=== PATIENT | female | born 1950 | race Caucasian/White ===

== ENCOUNTER → 2021-03-15 | Outpatient (CLI) | payer MEDICARE ==
[2021-03-15 16:43] LABS: HCT 37.8 % (37.2-46.3); HGB 11.4 g/dL (12.0-15.0); MCH 29.3 pg (27.0-32.0); MCHC 30.2 g/dL (32.0-37.0); MCV 97.2 fL (80.0-97.0); Mean Platelet Volume 10.8 fL (9.5-12.2); Platelet Count 423 X 10*3/uL (140-440); RBC 3.89 X 10*6/uL (4.10-5.20); RDW 14.2 % (11.5-14.5); WBC 8.32 X 10*3/uL (4.50-10.00)
[2021-03-15 18:14] LABS: African American GFR (CKD) 87.6 (60.0-200.0); Albumin 4.4 g/dL (3.8-4.9); Anion Gap 11.7 mmol/L (4.00-12.00); BUN/Creat Ratio 25.51 Ratio (12.00-20.00); Blood Urea Nitrogen 20.1 mg/dL (9.0-27.0); Calcium 9.7 mg/dL (8.7-10.3); Carbon Dioxide 24.3 mmol/L (21.6-31.8); Chol/HDL Ratio 3.94 Ratio; LDL Cholesterol,Calculated 162.8 mg/dL (0.0-131.0); Non-African American GFR(CKD) 75.5 (60.0-200.0); Phosphorus 3.3 mg/dL (2.4-5.1); Potassium 4.3 mmol/L (3.5-5.5); VLDL Calculation 25.2 mg/dL (5.00-40.00)
== END | disposition home or self-care (01) ==
LOC: LABWHC1 09:38
PROVIDERS: ATTEND Internal Medicine
DX: D64.9 Anemia, unspecified (principal); E78.5 Hyperlipidemia, unspecified; R53.83 Other fatigue; R00.0 Tachycardia, unspecified
CPT/HCPCS: 36415; 80061; 80069; 83036; 84443; 85027

== ENCOUNTER → 2021-09-13 | Outpatient (CLI) | payer MEDICARE ==
[2021-09-13 22:37] LABS: ALT 31 U/L (8-44); AST 29 U/L (13-35); Chol/HDL Ratio 3.49 Ratio; LDL Cholesterol,Calculated 175.9 mg/dL (0.0-131.0)
== END | disposition home or self-care (01) ==
LOC: LABWHC1 13:12
PROVIDERS: ATTEND Internal Medicine
DX: E78.2 Mixed hyperlipidemia (principal)
CPT/HCPCS: 36415; 80061; 84450; 84460

== ENCOUNTER → 2022-04-08 | Outpatient (CLI) | payer MEDICARE ==
[2022-04-08 18:32] LABS: HCT 38.4 % (37.2-46.3); HGB 12.4 g/dL (12.0-15.0); MCH 30.5 pg (27.0-32.0); MCHC 32.3 g/dL (32.0-37.0); MCV 94.6 fL (80.0-97.0); Mean Platelet Volume 10.4 fL (9.5-12.2); NRBC Per 100 WBC 0 /100 WBCS (0.0-0.0); Platelet Count 321 X 10*3/uL (140-440); RBC 4.06 X 10*6/uL (4.10-5.20); RDW 12.8 % (11.5-14.5); WBC 8.43 X 10*3/uL (4.50-10.00)
== END | disposition home or self-care (01) ==
LOC: LABWHC1 14:22
PROVIDERS: ATTEND Internal Medicine
DX: E78.5 Hyperlipidemia, unspecified (principal); R06.02 Shortness of breath; R07.9 Chest pain, unspecified
CPT/HCPCS: 36415; 80061; 85027

== ENCOUNTER → 2023-01-27 | Outpatient (CLI) | payer MEDICARE ==
[2023-01-27 20:44] LABS: ALT 26 U/L (8-44); Chol/HDL Ratio 4.24 Ratio; LDL Cholesterol,Calculated 173.3 mg/dL (0.0-131.0)
[2023-01-27 20:45] LABS: AST 26 U/L (13-35)
== END | disposition home or self-care (01) ==
LOC: LABWHC1 12:33
PROVIDERS: ATTEND Internal Medicine
DX: E78.2 Mixed hyperlipidemia (principal)
CPT/HCPCS: 36415; 80061; 84450; 84460